=== PATIENT | female | born 1985 | race Caucasian/White ===

== ENCOUNTER → 2017-05-20 | Outpatient (CLI) | payer BC ==
--- NOTE | 2017-05-20 14:26 | US ---
EXAMINATION TYPE: US abdomen complete DATE OF EXAM: 05/20/2017 COMPARISON: NONE CLINICAL HISTORY: R10.9 Abd Pain. Pt states on/off ABD pain with nausea x 2 weeks EXAM MEASUREMENTS: Liver Length: 14.8 cm Gallbladder Wall: 0.2 cm CBD: 0.3 cm Spleen: 11.5 cm Right Kidney: 10.4 x 4.1 x 4.1 cm Left Kidney: 11.1 x 5.2 x 4.4 cm Pancreas: wnl, tail obscured by overlying bowel gas Liver: wnl Gallbladder: wnl Evidence for sonographic Biggs's sign: No CBD: wnl Spleen: wnl Right Kidney: wnl, lower pole gassed out Left Kidney: wnl, lower pole gassed out Upper IVC: wnl Abd Aorta: wnl IMPRESSION: 1. Exam limited by bowel gas. No suspicious acute changes are evident.
== END | disposition home or self-care (01) ==
LOC: RADUSWWP 07:19
PROVIDERS: ATTEND Family Medicine
DX: R10.9 Unspecified abdominal pain (principal)
CPT/HCPCS: 76700